=== PATIENT | female | born 1990 | race Hispanic/Latino ===

== ENCOUNTER 2017-05-15 17:50 | Inpatient (IN) | payer OTHER ==
[~2017-05-15] VITALS: Ht 149.9 cm; Wt 57.2 kg
[2017-05-15] VITALS (9 sets, daily range): BP systolic 114–135; BP diastolic 67–76
[~2017-05-15 17:50] MED LIST: IBUPROFEN600 MG PO; LORTAB 5/3255 MG PO; ONDANSETRON4 MG OR; PRENATAL1 TA1 PO; PREVACID30 M1 OR; PREVACID30 M2 PO; PRILOSEC20 MG/CAP PO; ULTRAM50 M1 PO; ULTRAM50 MG OR; ZOFRAN ODT4 MG PO; ZOFRAN ODT8 MG SL
[2017-05-15 18:01] LABS: URINE BILIRUBIN - DIPSTICK NEGATIVE (NEGATIVE); URINE BLOOD DIPSTICK SMALL (NEGATIVE); URINE CLARITY CLEAR; URINE COLOR YELLOW; URINE GLUCOSE - DIPSTICK NEGATIVE (NEGATIVE); URINE KETONE TRACE mg/dL (NEGATIVE); URINE LEUK ESTERASE NEGATIVE (NEGATIVE); URINE NITRITE - DIPSTICK NEGATIVE (Negative); URINE PROTEIN - DIPSTICK NEGATIVE (NEG-TRACE); URINE SPECIFIC GRAVITY 1.025; URINE UROBILINOGEN - DIPSTICK 0.2 E.U./dL (0.2)
[2017-05-15 18:04] LABS: BARBITURATES NEGATIVE (NEGATIVE); COCAINE NEGATIVE (NEGATIVE); METHADONE NEGATIVE (NEGATIVE); OXCYCODONE NEGATIVE (NEGATIVE); TETRAHYDROCANNABIONOL NEGATIVE (NEGATIVE); TRICYLIC ANTIDEPRESSANTS NEGATIVE (NEGATIVE)
[2017-05-15 18:10] LABS: URINE SQUAMOUS EPITHELIAL CELL FEW EPI/hpf (0-FEW); URINE WBC 0-2 WBC/hpf (0-5)
[2017-05-15 19:37] LABS: HEMATOCRIT 39.2 % (37.0-47.0); HEMOGLOBIN 13.2 g/dl (12.0-16.0); IMMATURE GRANULOCYTES 0.6 % (0.0-1.0); MEAN CELL VOLUME 87.7 fL CALC (80.0-100.0); MEAN CORPUSCULAR HGB 29.5 pG CALC (26.0-32.0); MEAN CORPUSCULAR HGB CONC 33.7 g/L CALC (32.0-36.0); NEUT# 6.91 thou/uL (2.00-7.15); RED BLOOD COUNT 4.47 mill/uL (4.20-5.60); RED CELL DISTRI WIDTH 13.6 % (11.5-15.5)
[2017-05-15 20:00] LABS: ALBUMIN 3.9 g/dL (3.2-5.0); ALKALINE PHOSPHATASE 184 u/l (38-126); ANION GAP 15 (6-22 (CALC)); BUN 11 mg/dL (7-17); BUN/CREATININE RATIO 27 (12-20 (CALC)); CALCIUM 9.1 mg/dL (8.4-10.2); CARBON DIOXIDE 17 mmol/l (22-30); CHLORIDE 108 mmol/l (95-108); CREATININE 0.4 mg/dL (0.5-1.0); GFR > 60 ML/MIN (>=60 (CALC)); GFR FOR AFR.AMER. > 60 ML/MIN (>=60 (CALC)); GLUCOSE 72 mg/dL (65-105); POTASSIUM 4.3 mmol/l (3.5-5.1); SGOT/AST 24 u/l (14-36); SGPT/ALT 27 u/l (9-52); SODIUM 136 mmol/l (137-146)
[2017-05-16] VITALS: BP 109/65
[2017-05-16 01:25] VITALS: BP 112/56
[2017-05-16 04:50] VITALS: BP 110/53
[2017-05-16 05:39] LABS: HEMATOCRIT 37.6 % (37.0-47.0); HEMOGLOBIN 12.8 g/dl (12.0-16.0); IMMATURE GRANULOCYTES 0.6 % (0.0-1.0); MEAN CELL VOLUME 87.6 fL CALC (80.0-100.0); MEAN CORPUSCULAR HGB 29.8 pG CALC (26.0-32.0); NEUT# 10.56 thou/uL (2.00-7.15); RED BLOOD COUNT 4.29 mill/uL (4.20-5.60); RED CELL DISTRI WIDTH 13.6 % (11.5-15.5)
[2017-05-16 14:05] VITALS: BP 104/66
[2017-05-16 21:40] VITALS: BP 130/77
[2017-05-17 07:39] VITALS: BP 117/80
[2017-05-17] MEDS ORDERED: IBUPROFEN600 MG PO (08:36)
== END 2017-05-17 13:55 | disposition home or self-care (01) | DRG 775 ==
LOC: OB 17:50 → OBOP 17:50 → OB 17:50 → OBOP 18:29 → OB 18:30
PROC: 10E0XZZ Delivery of Products of Conception, External Approach (ICD-10-PCS; principal; 2017-05-15)
PROC: 10907ZC Drainage of Amniotic Fluid, Therapeutic from Products of Conception, Via Natural or Artificial Opening (ICD-10-PCS; 2017-05-15)
DX: O80 Encounter for full-term uncomplicated delivery (principal); Z37.0 Single live birth; Z3A.37 37 weeks gestation of pregnancy
CPT/HCPCS: J2540

== ENCOUNTER 2021-08-14 07:12 | Emergency (ER) | payer SELFPAY ==
[~2021-08-14] VITALS: Ht 149.9 cm; Wt 44.0 kg
[2021-08-14] MEDS ORDERED: AMOX/K CLAV875 M1 PO (08:56)
[2021-08-14 09:05] VITALS: BP 122/77
== END 2021-08-14 09:12 | disposition home or self-care (01) | DRG 153 ==
LOC: ED 07:12
DX: J32.9 Chronic sinusitis, unspecified (principal); Z20.822 Contact with and (suspected) exposure to COVID-19

== ENCOUNTER 2022-06-14 17:56 | Emergency (ER) | payer OTHER ==
[~2022-06-14] VITALS: Ht 149.9 cm; Wt 53.8 kg
[~2022-06-14 17:56] MED LIST changes: +AMOX/K CLAV875 M1 PO
[2022-06-14 18:48] VITALS: BP 116/80
[2022-06-14 19:03] LABS: URINE BILIRUBIN - DIPSTICK NEGATIVE (NEGATIVE); URINE BLOOD DIPSTICK MODERATE (NEGATIVE); URINE COLOR YELLOW; URINE GLUCOSE - DIPSTICK 100 mg/dL (NEGATIVE); URINE KETONE NEGATIVE (NEGATIVE); URINE LEUK ESTERASE TRACE (NEGATIVE); URINE PROTEIN - DIPSTICK NEGATIVE (NEG-TRACE); URINE SPECIFIC GRAVITY >=1.030; URINE UROBILINOGEN - DIPSTICK 0.2 E.U./dL (0.2)
[2022-06-14 19:09] LABS: URINE NITRITE - DIPSTICK NEGATIVE (Negative)
[2022-06-14 19:13] LABS: URINE SQUAMOUS EPITHELIAL CELL MODERATE EPI/hpf (0-FEW)
[2022-06-14 19:14] LABS: URINE CALCIUM OXALATE CRYSTALS FEW lpf
== END 2022-06-14 21:44 | disposition home or self-care (01) | DRG 563 ==
LOC: ED 17:56
PROVIDERS: Nurse Practitioner
DX: S39.012A Strain of muscle, fascia and tendon of lower back, initial encounter (principal); V53.5XXA Driver of pick-up truck or van injured in collision with car, pick-up truck or van in traffic accident, initial encounter; Z20.822 Contact with and (suspected) exposure to COVID-19